=== PATIENT | female | born 1940 | race Caucasian/White ===

== ENCOUNTER 2019-04-15 11:04 | Inpatient (IN) | payer OTHER ==
[~2019-04-15] VITALS: Ht 162.6 cm; Wt 89.6 kg
[~2019-04-15 11:04] MED LIST: ACET325T33 PO; ALLO100T PO; AMLO-147 PO; ATOR-2 PO; BENZ-5 PO; CITA40TA6 PO; ENOX30DI2 SC; FLUT16SP17 NASAL; FURO40TA4 PO; HEP30MU30 CATHETER; HEPA500021 SQ; HYDR-3672 PO; IPRA3AMP29 HHN; LEVO250T9 PO; LEVO75TA5 PO; LISI1TAB23 PO; Lorazepam PO; METF-849 PO; METO-407 PO; MONT10TA24 PO; NOVO3I SC; PANT40TA4 PO; PRED10TA PO; PRED20TA PO; PRED5TAB PO; [UNRECOGNIZED DRUG - CODE] SC
[2019-04-15] MEDS ORDERED: IPRATROPIUM (NEB) 0.5 MG/2.5 ML AMP INH STA (11:33)
[2019-04-15] MEDS ORDERED: METHYLPREDNISOLONE 125 MG INJ IV STA (11:33)
[2019-04-15] MEDS ORDERED: ALBUTEROL 0.5% (NEB) 2.5 MG/0.5 ML AMP INH STA (11:33)
[2019-04-15] MEDS ORDERED: ACETAMINOPHEN 325 MG TAB PO PRN (13:00)
[2019-04-15] MEDS ORDERED: ONDANSETRON 4 MG INJ IV PRN (13:00)
[2019-04-15] MEDS ORDERED: LEVOFLOXACIN 750MG/D5W (PMX) 150 ML IVPB ONE (13:00)
[2019-04-15] MEDS ORDERED: ALBUTEROL/IPRATROPIUM (NEB) 3 ML AMP HHN STA (15:11)
[2019-04-15 16:10] VITALS: BP 177/79; PULSE 109; RESP 18
[2019-04-15 17:04] VITALS: Ht 162.6 cm; Wt 89.6 kg
[2019-04-15] MEDS: INSULIN ASPART [NOVOLOG] 3 ML PEN SC SCH ×2 (18:00→21:00)
[2019-04-15] MEDS: metFORMIN 500 MG TAB PO SCH (18:25)
[2019-04-15] MEDS: ACCU-CHEK XX SCH ×2 (18:25→21:26)
[2019-04-15] MEDS: METHYLPREDNISOLONE 125 MG INJ IV SCH ×2 (18:27→23:23)
[2019-04-15 20:00] VITALS: BP 143/76; PULSE 94; RESP 20
[2019-04-15] MEDS: ATORVASTATIN 80 MG TAB PO SCH (20:42)
[2019-04-15] MEDS: MONTELUKAST 10 MG TAB PO SCH (20:42)
[2019-04-15] MEDS: ALBUTEROL/IPRATROPIUM (NEB) 3 ML AMP HHN SCH (21:07)
[2019-04-15] MEDS: FUROSEMIDE 40 MG INJ IV SCH (21:33)
[2019-04-15 23:41] VITALS: BP 162/82; PULSE 99; RESP 20
[2019-04-15] MEDS: BENZONATATE 100 MG CAP PO PRN (23:57)
[2019-04-16] MEDS: ALBUTEROL/IPRATROPIUM (NEB) 3 ML AMP HHN SCH ×6 (00:06→20:22)
[2019-04-16] MEDS: ACCU-CHEK XX SCH ×5 (01:49→21:00)
[2019-04-16 03:01] VITALS: BP 124/68; PULSE 98; RESP 18
[2019-04-16] MEDS: FUROSEMIDE 40 MG INJ IV SCH (06:19)
[2019-04-16] MEDS: LEVOTHYROXINE 75 MCG TAB PO SCH (06:19)
[2019-04-16 07:11] VITALS: BP 160/77; PULSE 103; RESP 22
[2019-04-16] MEDS: INSULIN ASPART [NOVOLOG] 3 ML PEN SC SCH ×4 (08:00→22:30)
[2019-04-16] MEDS ORDERED: METOPROLOL 100 MG TAB PO SCH (09:00)
[2019-04-16] MEDS: METHYLPREDNISOLONE 125 MG INJ IV SCH ×3 (09:09→22:25)
[2019-04-16] MEDS: CITALOPRAM 20 MG TAB PO SCH (09:09)
[2019-04-16] MEDS: ALLOPURINOL 100 MG TAB PO SCH (09:09)
[2019-04-16] MEDS: PANTOPRAZOLE (EC) 40 MG TAB PO SCH (09:09)
[2019-04-16] MEDS: metFORMIN 500 MG TAB PO SCH ×2 (09:09→17:35)
[2019-04-16] MEDS: LEVOFLOXACIN 500MG/D5W (PMX) 100 ML IVPB SCH (09:10)
[2019-04-16] MEDS: ENOXAPARIN 30 MG/0.3 ML SYG SC SCH (09:46)
[2019-04-16 11:42] VITALS: BP 135/66; PULSE 80; RESP 20
[2019-04-16 15:51] VITALS: BP 164/74; PULSE 78; RESP 22
[2019-04-16] MEDS: BENZONATATE 100 MG CAP PO PRN (16:33)
[2019-04-16 20:00] VITALS: BP 156/65; PULSE 87; RESP 20
[2019-04-16] MEDS: MONTELUKAST 10 MG TAB PO SCH (22:23)
[2019-04-16] MEDS: DIPHENHYDRAMINE 50 MG CAP PO PRN (22:24)
[2019-04-16] MEDS: METOPROLOL 100 MG TAB PO SCH (22:24)
[2019-04-16] MEDS: ATORVASTATIN 80 MG TAB PO SCH (22:25)
[2019-04-16] MEDS: FLUTICASONE 0.05% 16 GM NAS SPRAY NASAL SCH (22:25)
[2019-04-16 23:52] VITALS: BP 167/79; PULSE 85; RESP 20
[2019-04-17] MEDS: ACCU-CHEK XX SCH ×5 (02:00→21:00)
[2019-04-17] MEDS: ALBUTEROL/IPRATROPIUM (NEB) 3 ML AMP HHN SCH ×6 (02:13→21:02)
[2019-04-17] MEDS: BENZONATATE 100 MG CAP PO PRN (02:31)
[2019-04-17 04:00] VITALS: BP 147/70; PULSE 78; RESP 21
[2019-04-17] MEDS: LEVOTHYROXINE 75 MCG TAB PO SCH (06:43)
[2019-04-17] MEDS: METHYLPREDNISOLONE 125 MG INJ IV SCH ×2 (06:43→13:55)
[2019-04-17 07:26] VITALS: BP 124/72; PULSE 76; RESP 22
[2019-04-17] MEDS: INSULIN ASPART [NOVOLOG] 3 ML PEN SC SCH ×4 (08:00→21:00)
[2019-04-17] MEDS: ALLOPURINOL 100 MG TAB PO SCH (08:35)
[2019-04-17] MEDS: FLUTICASONE 0.05% 16 GM NAS SPRAY NASAL SCH (08:35)
[2019-04-17] MEDS: CITALOPRAM 20 MG TAB PO SCH (08:35)
[2019-04-17] MEDS: PANTOPRAZOLE (EC) 40 MG TAB PO SCH (08:35)
[2019-04-17] MEDS: LEVOFLOXACIN 500MG/D5W (PMX) 100 ML IVPB SCH (08:35)
[2019-04-17] MEDS: metFORMIN 500 MG TAB PO SCH (08:35)
[2019-04-17] MEDS: METOPROLOL 100 MG TAB PO SCH ×2 (08:36→21:11)
[2019-04-17] MEDS: ENOXAPARIN 30 MG/0.3 ML SYG SC SCH (08:51)
[2019-04-17 11:04] VITALS: BP 139/66; PULSE 76; RESP 20
[2019-04-17] MEDS: CEPASTAT LOZENGE MT PRN (14:57)
[2019-04-17 15:22] VITALS: BP 144/70; PULSE 77; RESP 22
[2019-04-17] MEDS: ACETAMINOPHEN 325 MG TAB PO PRN (17:30)
[2019-04-17 19:50] VITALS: BP 155/77; PULSE 82; RESP 22
[2019-04-17] MEDS: ATORVASTATIN 80 MG TAB PO SCH (21:10)
[2019-04-17] MEDS: METHYLPREDNISOLONE 40 MG INJ IV SCH (21:10)
[2019-04-17] MEDS: MONTELUKAST 10 MG TAB PO SCH (21:11)
[2019-04-17] MEDS: DIPHENHYDRAMINE 50 MG CAP PO PRN (22:38)
[2019-04-18] VITALS: BP 125/61; PULSE 80; RESP 19
[2019-04-18] MEDS: ALBUTEROL/IPRATROPIUM (NEB) 3 ML AMP HHN SCH ×6 (01:13→20:56)
[2019-04-18] MEDS: ACCU-CHEK XX SCH ×5 (02:00→21:00)
[2019-04-18 03:38] VITALS: BP 136/67; PULSE 78; RESP 18
[2019-04-18] MEDS: LEVOTHYROXINE 75 MCG TAB PO SCH (06:45)
[2019-04-18 07:18] VITALS: BP 139/76; PULSE 71; RESP 19
[2019-04-18] MEDS: INSULIN ASPART [NOVOLOG] 3 ML PEN SC SCH ×4 (07:41→20:46)
[2019-04-18] MEDS: CITALOPRAM 20 MG TAB PO SCH (08:51)
[2019-04-18] MEDS: ALLOPURINOL 100 MG TAB PO SCH (08:51)
[2019-04-18] MEDS: PANTOPRAZOLE (EC) 40 MG TAB PO SCH (08:51)
[2019-04-18] MEDS: METOPROLOL 100 MG TAB PO SCH ×2 (08:52→20:31)
[2019-04-18] MEDS: LEVOFLOXACIN 500MG/D5W (PMX) 100 ML IVPB SCH (08:52)
[2019-04-18] MEDS: FLUTICASONE 0.05% 16 GM NAS SPRAY NASAL SCH (08:52)
[2019-04-18] MEDS: METHYLPREDNISOLONE 40 MG INJ IV SCH (08:52)
[2019-04-18] MEDS: ENOXAPARIN 30 MG/0.3 ML SYG SC SCH (09:06)
[2019-04-18 11:24] VITALS: BP 166/75; PULSE 75; RESP 18
[2019-04-18] MEDS: CEPASTAT LOZENGE MT PRN ×2 (14:19→15:32)
[2019-04-18] MEDS: BENZONATATE 100 MG CAP PO PRN (14:23)
[2019-04-18] MEDS: ACETAMINOPHEN 325 MG TAB PO PRN (14:23)
[2019-04-18 15:21] VITALS: BP 167/80; PULSE 78; RESP 18
[2019-04-18 20:00] VITALS: BP 112/66; PULSE 75; RESP 18
[2019-04-18] MEDS: MONTELUKAST 10 MG TAB PO SCH (20:31)
[2019-04-18] MEDS: ATORVASTATIN 80 MG TAB PO SCH (20:31)
[2019-04-19] VITALS: BP 105/73; PULSE 71; RESP 17
[2019-04-19] MEDS: ALBUTEROL/IPRATROPIUM (NEB) 3 ML AMP HHN SCH ×6 (01:06→21:26)
[2019-04-19] MEDS: BENZONATATE 100 MG CAP PO PRN ×2 (02:27→21:21)
[2019-04-19] MEDS: CEPASTAT LOZENGE MT PRN ×2 (02:29→21:22)
[2019-04-19] MEDS: ACCU-CHEK XX SCH ×5 (02:31→21:00)
[2019-04-19 04:00] VITALS: BP 136/66; PULSE 77; RESP 18
[2019-04-19] MEDS: LEVOTHYROXINE 75 MCG TAB PO SCH (06:09)
[2019-04-19 07:44] VITALS: BP 93/53; PULSE 67; RESP 20
[2019-04-19] MEDS: INSULIN ASPART [NOVOLOG] 3 ML PEN SC SCH ×5 (08:00→21:00)
[2019-04-19] MEDS: FLUTICASONE 0.05% 16 GM NAS SPRAY NASAL SCH (08:32)
[2019-04-19] MEDS: LEVOFLOXACIN 500MG/D5W (PMX) 100 ML IVPB SCH (08:33)
[2019-04-19] MEDS: predniSONE 20 MG TAB PO SCH (08:34)
[2019-04-19] MEDS: PANTOPRAZOLE (EC) 40 MG TAB PO SCH (08:34)
[2019-04-19] MEDS: CITALOPRAM 20 MG TAB PO SCH (08:34)
[2019-04-19] MEDS: METOPROLOL 100 MG TAB PO SCH ×2 (08:35→21:22)
[2019-04-19] MEDS: ALLOPURINOL 100 MG TAB PO SCH (08:35)
[2019-04-19] MEDS: ENOXAPARIN 30 MG/0.3 ML SYG SC SCH (08:48)
[2019-04-19] MEDS: ACETAMINOPHEN 325 MG TAB PO PRN (11:01)
[2019-04-19 11:52] VITALS: BP 129/60; PULSE 70; RESP 20
[2019-04-19 15:31] VITALS: BP 161/67; PULSE 78; RESP 18
[2019-04-19 20:49] VITALS: BP 157/74; PULSE 88; RESP 20
[2019-04-19] MEDS: MONTELUKAST 10 MG TAB PO SCH (21:21)
[2019-04-19] MEDS: ATORVASTATIN 80 MG TAB PO SCH (21:23)
[2019-04-19] MEDS: DIPHENHYDRAMINE 50 MG CAP PO PRN (21:23)
[2019-04-19] MEDS ORDERED: IOHEXOL 14.3 MG(I)/ML (ADULT) BTL PO ONE (23:30)
[2019-04-20] MEDS: ALBUTEROL/IPRATROPIUM (NEB) 3 ML AMP HHN SCH ×6 (01:14→22:21)
[2019-04-20 02:00] VITALS: BP 126/65; PULSE 77; RESP 20
[2019-04-20] MEDS: ACCU-CHEK XX SCH ×5 (02:00→21:06)
[2019-04-20] MEDS: LEVOTHYROXINE 75 MCG TAB PO SCH (07:00)
[2019-04-20 07:50] VITALS: BP 99/60; PULSE 62; RESP 19
[2019-04-20] MEDS: INSULIN ASPART [NOVOLOG] 3 ML PEN SC SCH ×4 (08:00→21:00)
[2019-04-20] MEDS: METOPROLOL 100 MG TAB PO SCH ×2 (09:00→21:06)
[2019-04-20] MEDS: LEVOFLOXACIN 500MG/D5W (PMX) 100 ML IVPB SCH (09:52)
[2019-04-20] MEDS: ALLOPURINOL 100 MG TAB PO SCH (09:53)
[2019-04-20] MEDS: predniSONE 20 MG TAB PO SCH (09:53)
[2019-04-20] MEDS: PANTOPRAZOLE (EC) 40 MG TAB PO SCH (09:53)
[2019-04-20] MEDS: FLUTICASONE 0.05% 16 GM NAS SPRAY NASAL SCH (09:53)
[2019-04-20] MEDS: CITALOPRAM 20 MG TAB PO SCH (09:55)
[2019-04-20] MEDS: ENOXAPARIN 30 MG/0.3 ML SYG SC SCH (09:56)
[2019-04-20] MEDS ORDERED: SOD CHLORIDE 0.9% 1,000 ML IV SCH (11:30)
[2019-04-20] MEDS ORDERED: ALLOPURINOL 100 MG TAB PO ONE (12:30)
[2019-04-20] MEDS ORDERED: LACTULOSE 30ML CUP PO ONE ×2 (14:00→14:30)
[2019-04-20 15:07] VITALS: BP 105/62; PULSE 60; RESP 19
[2019-04-20 20:37] VITALS: BP 134/70; PULSE 82; RESP 18
[2019-04-20] MEDS: MONTELUKAST 10 MG TAB PO SCH (21:05)
[2019-04-20] MEDS: ATORVASTATIN 80 MG TAB PO SCH (21:06)
[2019-04-20] MEDS: ACETAMINOPHEN 325 MG TAB PO PRN (21:15)
[2019-04-21] MEDS ORDERED: ALLOPURINOL 100 MG TAB PO SCH (09:00)
== END 2019-04-20 22:45 | disposition home health service (06) | DRG 193 ==
LOC: E/R 11:04 → 6WM 12:54 → PP2 04-19 15:02
PROVIDERS: ADMIT Internal Medicine; ATTEND Internal Medicine
DX: J18.9 Pneumonia, unspecified organism (principal); I50.33 Acute on chronic diastolic (congestive) heart failure; J96.01 Acute respiratory failure with hypoxia; J44.0 Chronic obstructive pulmonary disease with (acute) lower respiratory infection; J44.1 Chronic obstructive pulmonary disease with (acute) exacerbation; I13.0 Hypertensive heart and chronic kidney disease with heart failure and stage 1 through stage 4 chronic kidney disease, or unspecified chronic kidney disease; N17.9 Acute kidney failure, unspecified; E87.1 Hypo-osmolality and hyponatremia; E11.22 Type 2 diabetes mellitus with diabetic chronic kidney disease; D64.9 Anemia, unspecified; E78.5 Hyperlipidemia, unspecified; K21.9 Gastro-esophageal reflux disease without esophagitis; N18.3 Chronic kidney disease, stage 3 (moderate); M10.9 Gout, unspecified; Z87.891 Personal history of nicotine dependence; Z79.84 Long term (current) use of oral hypoglycemic drugs
CPT/HCPCS: 36415; 71045; 71250; 74176; 76775; 80048; 80053; 82962; 83605; 83735; 83880; 83930; 83935; 84100; 84300; 84484; 84560; 85025; 85610; 85730; 93005; 93306; 94640; 94644; 94664; 94760; 96374; 97110; 97116; 97162; 97530; J1650; J1815; J1940; J1956; J2920; J2930; J7030; J7512